=== PATIENT | female | born 1975 | race Caucasian/White ===

== ENCOUNTER 2020-03-02 20:18 | Emergency (ER) | payer MEDICAID, OTHER ==
[~2020-03-02] VITALS: Ht 160 cm; Wt 118.8 kg
[2020-03-02 20:47] VITALS: BP 156/89
--- NOTE | 2020-03-02 21:00 | NUR ---
PT PROVIDED UA AND SENT BACK TO LOBBY TO AWAIT ROOM. EKG RESULTS GIVEN TO CRISTOPHER.
[2020-03-02] MEDS ORDERED: KETOROLAC 30 MG/ML VIAL IM ONE (21:20)
--- NOTE | 2020-03-02 21:32 | NUR ---
PT AMBUALTED TO [facility] C WITH STEADY GAIT.
--- NOTE | 2020-03-02 21:35 | NUR ---
44 Y/O FEMALE BIB SELF FOR C/O "HEART MURMUR/FLUTTER". PER PT SHE REPORTS HAVING HEART FLUTTER SINCE . SHE STATES THAT IT IS NORMAL FOR HER TO HAVE 2 EPISODES QMONTH. SHE VERBALIZES THAT SHE HAD TWO EPISODES THIS EVENING 5 HOURS A PART THAT BROUGHT HER IN TODAY. SHE WAS AAOX4 REPORTED HAVING 7/10 "ACHING" RADIATING PAIN FROM SHOULDER TO ELBOW. SHE IS IN NO ACUTE DISTRESS NOTED, BREATHING EVEN AND UNLABORED. HEART SOUNDS WERE REGULAR AND EVEN. PMHX: FIBROMYALGIA & HTN ALLERGIES: BEE STINGS
[2020-03-02 22:09] LABS: BASOPHILS # (AUTO) 0.1 K/uL (0.00-0.22); BASOPHILS % (AUTO) 2.9 % (0.0-2.0); EOSINOPHILS # (AUTO) 0.1 K/uL (0-0.4); HEMATOCRIT 32.2 % (36-48); LYMPHOCYTES # (AUTO) 0.7 K/uL (2.5-16.5); MEAN CORPUSCULAR HEMOGLOBIN 22 pg (27-31); MEAN CORPUSCULAR HGB CONC 31 g/dL (33-37); MEAN CORPUSCULAR VOLUME 71.8 fL (80-94); MONOCYTES # (AUTO) 0.7 K/uL (0.8-1.0); MONOCYTES % (AUTO) 17.9 % (1.7-9.3); NEUTROPHILS # (AUTO) 2.4 K/uL (1.8-7.7); NEUTROPHILS % (AUTO) 59.2 % (42.2-75.2); PLATELET COUNT (AUTO) 389 K/uL (140-450); RED BLOOD CELL COUNT(AUTO) 4.49 MIL/uL (4.20-5.40); RED CELL DISTRIBUTION WIDTH 17.2 % (11.6-13.7); WHITE BLOOD COUNT (AUTO) 4.1 K/uL (4.8-10.8)
[2020-03-02 22:29] LABS: ANION GAP 11.2 (8-16); CARBON DIOXIDE 28.5 mmol/L (21-32); CREATININE 0.9 mg/dL (0.6-1.3); POTASSIUM 3.7 mmol/L (3.5-5.1)
--- NOTE | 2020-03-02 22:55 | NUR ---
PT LAYING IN CHAIR C IN NO ACUTE DISTRESS NOTED. BREATHING EVEN AND UNLABORED. HEART SOUNDS WERE EVEN AND REGULAR. VERBALIZES A DECREASE IN PAIN LEVEL FROM 9/10 TO 6/10. DENIES ANY FEELINGS OF ANY ADDITIONAL FLUTTERS/HEART MURMURS. VSS. WILL CONTINUE TO MONITOR.
[2020-03-03 00:15] VITALS: BP 135/88
--- NOTE | 2020-03-03 00:15 | NUR ---
Patient discharged with v/s stable. Written and verbal after care instructions given and explained. Patient verbalized understanding. Ambulatory with steady gait. All questions addressed prior to discharge. Advised to follow up with PMD.
== END 2020-03-03 00:15 | disposition home or self-care (01) ==
LOC: MED 20:18
DX: R00.2 Palpitations (principal); M25.511 Pain in right shoulder
CPT/HCPCS: 36415; 71045; 80048; 81025; 84484; 85025; 93005; 96372; 99285; J1885